=== PATIENT | female | born 1965 | race Caucasian/White ===

== ENCOUNTER 2025-01-08 06:49 | Day surgery (SDC) | payer OTHER ==
[2025-01-06 14:12] LABS: IMMATURE GRANULOCYTE ABSOLUTE 0.02 K/uL (0-1); NUCLEATED RED BLOOD CELLS 0.0 % (0.0-0.19); PLATELET COUNT (AUTO) 300 K/uL (130-400); RED BLOOD CELL COUNT(AUTO) 4.74 MIL/uL (4.00-5.50); RED CELL DISTRIBUTION WIDTH 15.5 % (11.0-15.5); WHITE BLOOD COUNT (AUTO) 8.1 K/uL (4.8-10.8)
[2025-01-06 14:21] LABS: CREATININE 0.8 mg/dL (0.5-1.0); GLOMERULAR FILTR. RATE CALC 85.0 mL/min (>90); GLUCOSE,RANDOM 90.0 mg/dL (70-105); SODIUM SERUM 139.0 mmol/L (136-145); UREA NITROGEN, BLOOD 20.0 mg/dL (7-18)
[2025-01-06 14:25] VITALS: BP 109/70; PULSE 71; RESP 18; TEMP 98.1
[2025-01-08] VITALS (15 sets, daily range): BP systolic 105–155; BP diastolic 55–94; PULSE 56–77; RESP 15–17; TEMP 97.1–97.7
[~2025-01-08] VITALS: Ht 157.5 cm; Wt 61.2 kg
[~2025-01-08 06:49] MED LIST: ALPR1TAB7 PO; DEXT20CA4 PO; ERGO500093 PO; ZOLP-685 PO
[2025-01-08] MEDS: LACTATED RINGERS 1000ML 1,000 ML IV ONE (07:40)
[2025-01-08] MEDS ORDERED: MIDAZOLAM HCL 1 MG/ML 2ML VIAL ONE (08:05)
[2025-01-08] MEDS ORDERED: LIDOCAINE PF 100MG/5ML (2%) SYRINGE 5ML ONE (08:11)
[2025-01-08] MEDS ORDERED: PROMETHAZINE HCL 25 MG/ML 1ML AMPULE IM PRN (08:30)
--- NOTE | 2025-01-08 08:51 | OP ---
Operative Note: DATE OF PROCEDURE: 01/08/25 SURGEON: VINNY BROOKE MD GAS PROVER: [none] ANESTHESIA: [general] ANESTHESIOLOGIST/LISW: [general] PREOPERATIVE DIAGNOSIS: [thickened endometrium] POSTOPERATIVE DIAGNOSIS: [same plus polyps] SYNOPSIS: [na] PROCEDURE: [Hysteroscopy D&C with photos] ESTIMATED BLOOD LOSS: [minimal] INDICATIONS: [na] DESCRIPTION OF PROCEDURE: [The patient was visited in the holding area alone and the planned operation was stated in plain Syriac and she had no additional questions and was ready to proceed. She was taken to the operating room and placed under general anesthesia and prepped in the dorsal lithotomy position and her bladder was drained, a timeout was taken to confirm the patient's identity, her allergies, the planned operation and the fact that no antibiotics were administered. A right angle retractor was placed in the vagina and the uterus sounded to 5-6 cm and the cervix dilated to 5-6 mm and the hysteroscope with normal saline distension media was introduced with findings of fluffy tissue and a polyp in the area of the right cornu, photographs were taken and the hysteroscope was removed and the sharp curette was used to curette all surfaces until gritty with return of polypoid and scant to moderate tissue, the hysteroscope was reintroduced and the curette used again until all surfaces were clean. There was scanty bleeding at the conclusion of the procedure, the tenaculum and right angle was removed. The patient tolerated the procedure well, all sponge,lap and needle counts were correct at the end of the case and the patient was awakened and taken to the recovery room in stable condition. Her will be called with the findings and her stability. ] VINNY BROOKE MD Jan 08, 2025 08:50
--- NOTE | 2025-01-08 09:39 | NUR ---
ASSESSMENT: PERIPAD QUARTER SIZE SANGUINOUS DRAINAGE.
--- NOTE | 2025-01-08 10:22 | NUR ---
ASSESSMENT: GRETTA PAD WITH QUARTER SIZE SANGUINOUS DRAINAGE AND CHANGED PER PATIENT.
== END 2025-01-08 10:30 | disposition home or self-care (01) ==
LOC: DAH 06:49
PROVIDERS: ATTEND Obstetrics & Gynecology
DX: R93.89 Abnormal findings on diagnostic imaging of other specified body structures (principal); N95.0 Postmenopausal bleeding; F41.9 Anxiety disorder, unspecified; F32.A Depression, unspecified; Z87.891 Personal history of nicotine dependence; Z83.3 Family history of diabetes mellitus; Z79.899 Other long term (current) drug therapy
CPT/HCPCS: 80048; 84703; 85025; 36415; 58558; J1100; A4223 ×2; A6260; A4663; J7030; A4351; A4355; J7120; J3010 ×2; J2003; J2250; J2704; J2405; J1885; A4649; A4215; A4222; A4221; J3490